=== PATIENT | male | born 1940 | race Caucasian/White ===

== ENCOUNTER 2017-03-04 11:38 | Outpatient (CLI) | payer MEDICARE, OTHER ==
--- NOTE | 2017-03-04 12:52 | XRAY Report ---
THREE-VIEW LUMBAR SPINE: 03/04/2017 CLINICAL INDICATION: Back pain. FINDINGS: AP, lateral, coned-down views of the lumbar spine demonstrate moderate degenerative disc a nd facet disease. There is no evidence of compression fracture or subluxation. Vascular calcificati ons are seen. The bowel gas pattern appears normal. IMPRESSION: MODERATE DEGENERATIVE CHANGES. NO EVIDENCE OF FRACTURE. JOB #: [id number] EXT JOB #:[id number]
== END 2017-03-04 11:39 | disposition home or self-care (01) ==
LOC: DI 11:38
PROVIDERS: ATTEND Internal Medicine
DX: M51.36 Other intervertebral disc degeneration, lumbar region (principal); M47.896 Other spondylosis, lumbar region
CPT/HCPCS: 72100